=== PATIENT | male | born 1995 | race Hispanic/Latino ===

== ENCOUNTER 2020-11-16 19:37 | Emergency (ER) | payer SELFPAY ==
[2020-11-16 19:40] VITALS: BP 149/87; PULSE 109; RESP 18; TEMP 36.7; O2SAT 100
--- NOTE | 2020-11-16 21:24 | ED.GENADULT ---
HPI - General Adult General Chief complaint: Neuro Symptoms/Deficit Stated complaint: R facial numbness x 2 days Time Seen by Provider: 11/16/20 21:15 History of Present Illness HPI narrative: Patient is a 25-year-old gentleman who presents the emergency department with chief complaint of a right sided facial palsy. Patient states that 2 days ago he noticed the right side of his face felt a little strange and then noticed that his mouth would not quite hold food the way it normally does on the right side he also noticed that his eyelid was drooping and also noticed that when he would wake up his eyes would be extremely watery. Patient denies weakness in his arms or legs denies difficulty with speech denies problems swallowing. Related Data Allergies Allergy/AdvReac Type Severity Reaction Status Date / Time No Known Allergies Allergy Verified 11/16/20 19:42 Review of Systems Review of Systems: Narrative: A 10 system review of systems was completed on the patient and is negative except for what is stated in the HPI. Nursing and ancillary documentation was reviewed. PMFSH Comments Patient denies past medical history Social history the patient smokes cigarettes Exam Narrative: Exam Narrative: GENERAL: Well-appearing, well-nourished, and in no acute distress. HEAD: Normocephalic, atraumatic. EYES: PERRLA and EOMI. ENT: Nares clear, no rhinorrhea or epistaxis. Mucous membranes moist. NECK: Supple. CHEST: Clear to auscultation. No respiratory distress. HEART: Regular rate and rhythm. No murmur heard. Normal peripheral pulses. ABDOMEN: Soft, nontender, nondistended, normal active bowel sounds. EXTREMITIES: Normal range of motion. No edema. SKIN: Warm, dry, no rash. NEURO: No focal deficits. Alert and oriented x3. 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 Given the patient has had symptoms for less than 72 hours the patient will be started on high-dose glucocorticoids and also given that he has moderate to severe impairment the patient will be started on antiviral therapy. Vital Signs Vital signs: Vital Signs Temperature 36.7 C 11/16/20 19:40 Pulse Rate 109 H 11/16/20 19:40 Respiratory Rate 18 11/16/20 19:40 Blood Pressure 149/87 H 11/16/20 19:40 Pulse Oximetry 100 11/16/20 19:40 Temperature 36.7 C 11/16/20 19:40 Pulse Rate 109 H 11/16/20 19:40 Respiratory Rate 18 11/16/20 19:40 Blood Pressure 149/87 H 11/16/20 19:40 Pulse Oximetry 100 11/16/20 19:40 Medical Decision Making Vital Signs Vital Signs: Vital Signs Temperature 36.7 C 11/16/20 19:40 Pulse Rate 109 H 11/16/20 19:40 Respiratory Rate 18 11/16/20 19:40 Blood Pressure 149/87 H 11/16/20 19:40 Pulse Oximetry 100 11/16/20 19:40 Temperature 36.7 C 11/16/20 19:40 Pulse Rate 109 H 11/16/20 19:40 Respiratory Rate 18 11/16/20 19:40 Blood Pressure 149/87 H 11/16/20 19:40 Pulse Oximetry 100 11/16/20 19:40 Discharge Plan Discharge Clinical Impression: Ramirez's palsy Patient Disposition: Home, Self-Care Condition: Stable Instructions: Antibiotic Form, Ramirez Palsy (ED) Prescriptions: New prednisone 20 mg tablet 80 mg PO DAILY 7 Days Qty: 28 RF: 0 valacyclovir 1 gram tablet 1,000 mg PO Q8H 7 Days Qty: 21 RF: 0 Follow-up/Referrals: PHYSICIAN,MEN'S DESIGNER [Primary Care Provider] - Donald Zazueta MD [Physician] - Time of Disposition: 21:28
[2020-11-16] MEDS: valACYclovir HCL 500 MG TABLET 1000 MG PO (21:43)
[2020-11-16] MEDS: predniSONE 20 MG TABLET 80 MG PO (21:43)
[2020-11-16 21:49] VITALS: BP 134/69; PULSE 95; RESP 18; TEMP 36.5; O2SAT 99
== END 2020-11-16 21:51 | disposition home or self-care (01) ==
PROVIDERS: Emergency Provider Emergency Medicine
DX: G51.0 Bell's palsy (principal)
CPT/HCPCS: 99283; A9270; J7512